=== PATIENT | female | born 1940 | race Caucasian/White ===

== ENCOUNTER 2023-04-25 15:42 | Inpatient (IN) | payer MEDICARE ==
[~2023-04-25] VITALS: Ht 170.2 cm; Wt 65.8 kg
[2023-04-25 18:49] LABS: ALANINE AMINOTRANSFERASE 28 U/L (14-59); ALBUMIN 3.8 g/dL (3.4-5.0); ALKALINE PHOSPHATASE 92 U/L (50-136); ASPARTATE AMINOTRANSFERASE 25 U/L (15-37); BILIRUBIN,DIRECT 0.1 mg/dL (0.0-0.2); BILIRUBIN,TOTAL 0.4 mg/dL (0.2-1.0); CALCIUM 11.1 mg/dL (8.5-10.1); CARBON DIOXIDE 24 mmol/L (21-32); CHLORIDE 104 mmol/L (98-107); CREATININE 1.1 mg/dL (0.6-1.3); GLUCOSE 108 mg/dL (74-106); NT-PRO BNP 288 pg/mL (0-125); POTASSIUM 4.2 mmol/L (3.5-5.1); SODIUM SERUM 136 mmol/L (136-145); TOTAL PROTEIN, SERUM 7.5 g/dL (6.4-8.2); UREA NITROGEN, BLOOD 26 mg/dL (7-18)
[2023-04-25 19:01] LABS: BASOPHILS # (AUTO) 0.2 K/UL (0.0-0.2); BASOPHILS % (AUTO) 2.9 % (0.0-2.0); DIFFERENTIAL COMMENT 0; EOSINOPHILS # (AUTO) 0.2 K/uL (0.0-0.7); HEMOGLOBIN 13.7 g/dL (10.9-14.3); LYMPHOCYTES # (AUTO) 1.2 K/uL (0.8-4.8); LYMPHOCYTES % (AUTO) 14.3 % (20.5-51.5); MEAN CORPUSCULAR HEMOGLOBIN 30.1 uug (24.7-32.8); MEAN CORPUSCULAR HGB CONC 33 g/dL (32.3-35.6); MEAN CORPUSCULAR VOLUME 92.4 fL (75.5-95.3); MONOCYTES # (AUTO) 0.2 K/uL (0.1-1.30); NEUTROPHILS # (AUTO) 6.4 K/uL (1.8-8.9); NEUTROPHILS % (AUTO) 77.8 % (38.5-71.5); PLATELET COUNT (AUTO) 296 K/uL (179-408); RED BLOOD CELL COUNT(AUTO) 4.54 MIL/uL (3.63-4.92); WHITE BLOOD COUNT (AUTO) 8.2 K/uL (3.8-11.8)
[2023-04-25] MEDS ORDERED: ASPIRIN 81 MG TAB.CHEW PO ONE (19:15)
[2023-04-25] MEDS ORDERED: NITROGLYCERIN 0.4 MG/TAB BOTTLE SL ONE ×2 (19:15→19:18)
[2023-04-25] MEDS ORDERED: NITROGLYCERIN OINT 1 GM PACKET TP ONE ×2 (19:15→19:19)
[2023-04-25] MEDS ORDERED: ASPIRIN 81 MG TAB.CHEW ONE (19:18)
[2023-04-25 19:42] LABS: *BILIRUBIN,URIN NEGATIVE (NEGATIVE); *CLARITY,URINE CLEAR (CLEAR); *COLOR,URINE YELLOW (YELLOW); *KETONES,URINE 2+ (NEGATIVE); *PROTEIN,URINE NEGATIVE (NEGATIVE); *UROBILINOGEN,URINE 0.2 E.U./dl (NORMAL); LEUKOCYTE ESTERASE ,URINE TRACE (NEGATIVE); NITRITE, URINE NEGATIVE (NEGATIVE); PH,URINE 5.5 (5.0-8.0); UGLUCOSE NEGATIVE (NEGATIVE)
[2023-04-25 19:45] LABS: *BLOOD, URINE TRACE (NEGATIVE)
[2023-04-25] MEDS ORDERED: IOHEXOL 350 100 ML INFUS..BTL ONE (19:53)
[2023-04-25] MEDS ORDERED: SWABABLE VALVE TRANSFER SET EA MC ONE (19:53)
[2023-04-25] MEDS ORDERED: IV NORMAL SALINE 250 ML IV ONE (19:53)
[2023-04-25 20:19] LABS: BACTERIA,URINE MODERATE /HPF (NONE SEEN); SQUAMOUS EPITHELIAL CELL,UR FEW /HPF (NONE SEEN)
[2023-04-25] MEDS ORDERED: MIDO2.5T (20:57)
[2023-04-25] MEDS ORDERED: METO-356 (20:57)
[2023-04-25] MEDS ORDERED: ATOR10TA (20:57)
[2023-04-25] MEDS ORDERED: APIX5TAB (20:57)
[2023-04-25] MEDS ORDERED: NITROFURANTOIN/NITROFURAN MAC 100 MG CAPSULE PO ONE ×2 (21:15→22:00)
[2023-04-25] MEDS ORDERED: HYDROCODONE/APAP 5-325MG TABLET PO ONE (22:15)
[2023-04-25] MEDS ORDERED: HYDROCODONE/APAP 5-325MG TABLET ONE (22:18)
[2023-04-25 23:30] VITALS: BP 140/71; TEMP 97.9; O2SAT 96
[2023-04-25] MEDS ORDERED: REMEDY ESSENTIAL ZINC PASTE 113 GM TP PRN (23:45)
[2023-04-25] MEDS ORDERED: CEFTRIAXONE 1 G in IV DEXTROSE 5% 50 ML IV SCH (23:45)
[2023-04-25] MEDS ORDERED: ENOXAPARIN SODIUM 40 MG/0.4 ML DISP.SYRIN SQ SCH (23:45)
[2023-04-25] MEDS ORDERED: ZOLPIDEM 5 MG TABLET PO PRN (23:45)
[2023-04-25] MEDS ORDERED: ONDANSETRON 4 MG/2 ML VIAL IV PRN (23:45)
[2023-04-25] MEDS ORDERED: MAGNESIUM HYDROXIDE 30 ML LIQUID UDC PO PRN (23:45)
[2023-04-26 00:20] VITALS: BP 137/71; TEMP 97.8; O2SAT 99
[2023-04-26] MEDS ORDERED: CEFTRIAXONE /D5W 50ML IVPB **ER PYXIS IV ONE (00:48)
[2023-04-26] MEDS: ACETAMINOPHEN 325 MG TABLET PO PRN ×2 (02:22→21:21)
[2023-04-26 04:00] VITALS: BP 126/61; TEMP 97.3; O2SAT 96
[2023-04-26 06:48] LABS: BASOPHILS # (AUTO) 0.1 K/UL (0.0-0.2); BASOPHILS % (AUTO) 1.1 % (0.0-2.0); EOSINOPHILS % (AUTO) 0.4 % (0.0-7.0); HEMATOCRIT 36.4 % (31.2-41.9); HEMOGLOBIN 12.1 g/dL (10.9-14.3); LYMPHOCYTES # (AUTO) 1.8 K/uL (0.8-4.8); LYMPHOCYTES % (AUTO) 21.4 % (20.5-51.5); MEAN CORPUSCULAR HEMOGLOBIN 30.7 uug (24.7-32.8); MEAN CORPUSCULAR HGB CONC 33 g/dL (32.3-35.6); MEAN CORPUSCULAR VOLUME 92.1 fL (75.5-95.3); MONOCYTES # (AUTO) 0.3 K/uL (0.1-1.30); MONOCYTES % (AUTO) 4.2 % (0.0-11.0); NEUTROPHILS # (AUTO) 6.1 K/uL (1.8-8.9); NEUTROPHILS % (AUTO) 72.9 % (38.5-71.5); PLATELET COUNT (AUTO) 257 K/uL (179-408); RED BLOOD CELL COUNT(AUTO) 3.95 MIL/uL (3.63-4.92); RED CELL DISTRIBUTION WIDTH 14.6 % (12.3-17.7); WHITE BLOOD COUNT (AUTO) 8.3 K/uL (3.8-11.8)
[2023-04-26 07:11] LABS: DIFFERENTIAL COMMENT 1
[2023-04-26 07:36] LABS: CALCIUM 9.9 mg/dL (8.5-10.1); CARBON DIOXIDE 22 mmol/L (21-32); CHLORIDE 103 mmol/L (98-107); CHOLESTEROL 170 mg/dL (<200); CREATININE 0.8 mg/dL (0.6-1.3); GLUCOSE 104 mg/dL (74-106); HDL CHOLESTEROL 59 mg/dL (40-60); MAGNESIUM 1.9 mg/dL (1.8-2.4); PHOSPHOROUS 3.2 mg/dL (2.5-4.9); POTASSIUM 3.9 mmol/L (3.5-5.1); SODIUM SERUM 135 mmol/L (136-145); TRIGLYCERIDES 65 MG/DL (30-150); UREA NITROGEN, BLOOD 21 mg/dL (7-18)
[2023-04-26] MEDS ORDERED: CEFTRIAXONE 1 G in IV DEXTROSE 5% 50 ML IV SCH ×2 (08:00→23:00)
[2023-04-26] MEDS: PANTOPRAZOLE SODIUM 40 MG TABLET.DR PO SCH (08:19)
[2023-04-26] MEDS: METOPROLOL SUCCINATE XL 25 MG TAB.SR.24H PO SCH (08:20)
[2023-04-26] MEDS: APIXABAN 5 MG TABLET PO SCH ×2 (08:21→17:13)
[2023-04-26] MEDS ORDERED: MIDODRINE HCL 2.5 MG TABLET PO SCH (09:00)
[2023-04-26] MEDS ORDERED: MIDODRINE HCL 2.5 MG TABLET PO PRN (09:00)
[2023-04-26] MEDS ORDERED: CEphaleXIN 500 MG CAPSULE PO SCH (09:00)
[2023-04-26] MEDS ORDERED: ASPIRIN 81 MG TAB.CHEW PO SCH (09:00)
[2023-04-26] MEDS ORDERED: ATORVASTATIN 10 MG TABLET PO SCH ×2 (09:00→21:00)
[2023-04-26 11:31] VITALS: BP 125/59; TEMP 97.5; O2SAT 97
[2023-04-26 15:32] VITALS: BP 114/46; TEMP 97.9; O2SAT 98
[2023-04-26 15:53] LABS: THYROID STIMULATING HORMONE 1.201 mIU/mL (0.358-3.740)
[2023-04-26 20:00] VITALS: BP 105/56; TEMP 98.4; O2SAT 95
[2023-04-27] VITALS: BP 110/60; TEMP 97.9; O2SAT 95
[2023-04-27 04:00] VITALS: BP 118/64; TEMP 97.7; O2SAT 96
[2023-04-27] MEDS: PANTOPRAZOLE SODIUM 40 MG TABLET.DR PO SCH (06:45)
[2023-04-27] MEDS: APIXABAN 5 MG TABLET PO SCH (08:43)
[2023-04-27] MEDS: METOPROLOL SUCCINATE XL 25 MG TAB.SR.24H PO SCH (08:44)
[2023-04-27 11:31] VITALS: BP 104/56; TEMP 97.9; O2SAT 97
[2023-04-27] MEDS ORDERED: CEPH500T PO (14:19)
[2023-04-27 15:36] VITALS: BP 108/57; TEMP 98.3; O2SAT 96
== END 2023-04-27 16:25 | disposition home or self-care (01) | DRG 304 ==
LOC: ER 15:45 → TELE3 22:52
PROVIDERS: ADMIT Student in an Organized Health Care Education/Training Program; ATTEND Nurse Practitioner Acute Care
DX: I16.9 Hypertensive crisis, unspecified (principal); J18.8 Other pneumonia, unspecified organism; N39.0 Urinary tract infection, site not specified; I24.9 Acute ischemic heart disease, unspecified; I48.20 Chronic atrial fibrillation, unspecified; I10 Essential (primary) hypertension; T44.4X5A Adverse effect of predominantly alpha-adrenoreceptor agonists, initial encounter; Y92.019 Unspecified place in single-family (private) house as the place of occurrence of the external cause; I48.0 Paroxysmal atrial fibrillation; F41.9 Anxiety disorder, unspecified; E78.5 Hyperlipidemia, unspecified; Z86.16 Personal history of COVID-19; B96.89 Other specified bacterial agents as the cause of diseases classified elsewhere; Z79.01 Long term (current) use of anticoagulants; R55 Syncope and collapse; R79.1 Abnormal coagulation profile; R91.8 Other nonspecific abnormal finding of lung field; J98.4 Other disorders of lung
CPT/HCPCS: 36415; 70450; 71045; 71275; 83735; 84100; 84443; 84484; 85025; 85730; 93005; 93307; G0378; J0696; J2405; Q9967